=== PATIENT | female | born 1985 | race Caucasian/White ===

== ENCOUNTER 2018-01-30 23:24 | Emergency (ER) | payer OTHER ==
[~2018-01-30] VITALS: Ht 149.9 cm; Wt 72.6 kg
[2018-01-30 23:36] VITALS: BP 118/87
[2018-01-31] MEDS ORDERED: BACITRACIN OINT 500 UNITS/GM PKT TP ONE
[2018-01-31] MEDS ORDERED: NEOMYCIN/POLYMYXIN/BACITRACIN 0.9 GM/1 PKT TP ONE (00:11)
[2018-01-31 00:28] VITALS: BP 116/85
== END 2018-01-31 00:29 | disposition home or self-care (01) ==
LOC: MED 23:24
DX: S80.811A Abrasion, right lower leg, initial encounter (principal); W45.8XXA Other foreign body or object entering through skin, initial encounter; Y93.89 Activity, other specified; Y92.89 Other specified places as the place of occurrence of the external cause; Y99.8 Other external cause status
CPT/HCPCS: 90471; 90715; 99283

== ENCOUNTER 2018-07-08 18:17 | Emergency (ER) | payer OTHER ==
[~2018-07-08] VITALS: Ht 149.9 cm; Wt 108.9 kg
[2018-07-08 18:35] VITALS: BP 138/98
--- NOTE | 2018-07-08 18:46 | NUR ---
PT AMBULATED TO CHAIR E
--- NOTE | 2018-07-08 19:03 | NUR ---
PATIENT AMBULATED TO BED 9
--- NOTE | 2018-07-08 19:15 | NUR ---
report recv'd from Lisa BECK
--- NOTE | 2018-07-08 19:18 | NUR ---
edmd at bedside performing MSE
--- NOTE | 2018-07-08 19:21 | NUR ---
REPORT RECV'D FROM OBI[facility]
--- NOTE | 2018-07-08 19:21 | NUR ---
Sameer morton in [facility] - 07/08/18 at 1921 by REI BRANDEN REYES FROM [facility]
--- NOTE | 2018-07-08 19:30 | NUR ---
xray at bedside
[2018-07-08 19:37] LABS: BASOPHILS # (AUTO) 0.1 K/uL (0.00-0.22); BASOPHILS % (AUTO) 0.8 % (0.0-2.0); EOSINOPHILS # (AUTO) 0.1 K/uL (0-0.4); EOSINOPHILS % (AUTO) 0.6 % (0.0-4.0); HEMATOCRIT 41.8 % (36-48); HEMOGLOBIN 13.7 g/dL (12.0-16.0); LYMPHOCYTES # (AUTO) 2.2 K/uL (2.5-16.5); LYMPHOCYTES % (AUTO) 22.2 % (20.5-51.1); MEAN CORPUSCULAR HEMOGLOBIN 26 pg (27-31); MEAN CORPUSCULAR HGB CONC 33 g/dL (33-37); MONOCYTES # (AUTO) 0.5 K/uL (0.8-1.0); MONOCYTES % (AUTO) 5.4 % (1.7-9.3); PLATELET COUNT (AUTO) 356 K/uL (140-450); RED BLOOD CELL COUNT(AUTO) 5.29 MIL/uL (4.20-5.40); RED CELL DISTRIBUTION WIDTH 15.4 % (11.6-13.7); WHITE BLOOD COUNT (AUTO) 9.8 K/uL (4.8-10.8)
--- NOTE | 2018-07-08 19:41 | NUR ---
PT C/O 6/10 CONTINUOUS CHEST PRESSURE X 2 HRS WHEN SHE WAS STANDING IN HER ATTIC, RADIATING TO THE BACK, DENIES NVD, SOB AT THIS TIME. - DIAPHORESIS. ADMITS TO TAKING PREDNISONE, AMOXICILLIN AND SINGULAIR X 4 DAYS FOR SINUS INFECTION. SKIN IS INTACT, PINK/WARM/DRY; AAOX4, PERRL, LUNGS CLEAR BL, BREATHING UNLABORED;admits to nonproductinve cough, HR EVEN AND REGULAR, BL PERIPHERAL PULSES PRESENT; placed on cardiorespiratory monitor, NSR, HOB ELEVATED; BEDRAILS UP X1.
[2018-07-08 19:58] LABS: ANION GAP 13.8 (8-16); CREATININE 0.9 mg/dL (0.6-1.3); POTASSIUM 3.8 mmol/L (3.5-5.1)
[2018-07-08 20:04] LABS: ALBUMIN 3.3 g/dL (3.4-5.0); TOTAL BILIRUBIN 0.2 mg/dL (0.0-1.0)
[2018-07-08 20:12] LABS: CREATINE KINASE MB 0.4 ng/mL (0-3.6)
[2018-07-08 20:26] VITALS: BP 135/95
--- NOTE | 2018-07-08 20:26 | NUR ---
Patient discharged with v/s stable. Written and verbal after care instructions given and explained. Patient alert, oriented and verbalized understanding of instructions. Ambulatory with steady gait. All questions addressed prior to discharge. ID band removed. Patient advised to follow up with PMD. Rx of albuterol and sudafed given. Patient educated on indication of medication including possible reaction and side effects. Opportunity to ask questions provided and answered.
== END 2018-07-08 20:26 | disposition home or self-care (01) ==
LOC: MED 18:17
DX: J20.9 Acute bronchitis, unspecified (principal)
CPT/HCPCS: 36415; 71045; 80053; 82550; 82553; 83690; 84484; 85025; 85379; 93005; 99284; Q0092

== ENCOUNTER 2019-02-07 22:08 | Emergency (ER) | payer OTHER ==
[~2019-02-07] VITALS: Ht 149.9 cm; Wt 113.0 kg
[2019-02-07 22:15] VITALS: BP 130/90
--- NOTE | 2019-02-07 22:15 | NUR ---
TO BED # 12 AMBULATORY
--- NOTE | 2019-02-07 22:34 | NUR ---
33 YO F BIB SELF AND BOYFRIEND PRESENTS TO ED C/O TROUBLE FOCUSING, HEAD FOGGINESS X 4 DAYS. PT STATES "I FEEL LIKE I'M JUST OUT OF IT". NO ACUTE CONFUSION AT THIS TIME. PT ASLO REPORTS EYE TWITCHING, MILD NAUSEA OFF AND ON. DENIES PAIN/DISCOMFORT. -- PT AWAKE, A/O X 4. CALM, COOPERATIVE. BEHAVIOR AGE APPROPRIATE. ANSWERS QUESTIONS IN CLEAR, FULL SENTENCES. -- SKIN PINK, WARM, DRY. BREATHING EVEN, UNLABORED PMH-- DENIES RX-- DENIES
--- NOTE | 2019-02-07 23:08 | NUR ---
DR. ROLDAN EVALUATING AT BEDSIDE.
--- NOTE | 2019-02-07 23:15 | NUR ---
EMT PERFORMING EKG AT BEDSIDE.
[2019-02-07 23:32] LABS: BASOPHILS % (AUTO) 0.5 % (0.0-2.0); EOSINOPHILS # (AUTO) 0.3 K/uL (0-0.4); EOSINOPHILS % (AUTO) 3.8 % (0.0-4.0); HEMATOCRIT 45.1 % (36-48); LYMPHOCYTES # (AUTO) 2.6 K/uL (2.5-16.5); LYMPHOCYTES % (AUTO) 32.2 % (20.5-51.1); MEAN CORPUSCULAR HEMOGLOBIN 28 pg (27-31); MEAN CORPUSCULAR HGB CONC 33 g/dL (33-37); MEAN CORPUSCULAR VOLUME 83.2 fL (80-94); MONOCYTES # (AUTO) 0.5 K/uL (0.8-1.0); MONOCYTES % (AUTO) 5.7 % (1.7-9.3); NEUTROPHILS # (AUTO) 4.7 K/uL (1.8-7.7); NEUTROPHILS % (AUTO) 57.8 % (42.2-75.2); PLATELET COUNT (AUTO) 397 K/uL (140-450); RED BLOOD CELL COUNT(AUTO) 5.42 MIL/uL (4.20-5.40); RED CELL DISTRIBUTION WIDTH 14.2 % (11.6-13.7); WHITE BLOOD COUNT (AUTO) 8.2 K/uL (4.8-10.8)
[2019-02-07 23:47] LABS: BARBITURATE, URINE NEG. ng/ml (NEG <=200); BENZODIAZEPINE, URINE NEG. ng/mL (NEG <=200); CANNABINOID, URINE NEG. ng/mL (NEG <=50); COCAINE, URINE NEG. ng/mL (NEG <=300); OPIATE, URINE NEG. ng/mL (NEG <=2000); PHENCYCLIDINE SCREEN,URINE NEG. ng/mL (NEG <=25)
[2019-02-07 23:51] LABS: ANION GAP 13.7 (8-16); CARBON DIOXIDE 26.2 mmol/L (21-32); CREATININE 0.9 mg/dL (0.6-1.3); POTASSIUM 3.9 mmol/L (3.5-5.1); TOTAL BILIRUBIN 0.4 mg/dL (0.0-1.0)
[2019-02-07 23:57] LABS: CREATINE KINASE MB 0.5 ng/mL (0-3.6)
[2019-02-08 00:46] VITALS: BP 128/86
--- NOTE | 2019-02-08 00:46 | NUR ---
DISCHARGE PAPERS GIVEN TO PT. PT STATES NO DIZZINESS. VSS. INSTRUCTED TO F/U WITH PCP AND WHEN TO RETURN TO ER. PT VERBALLIZED UNDERSTANDING OF DC INSTRUCTIONS. ALL QEUSTIONS ANSWERED.
== END 2019-02-08 00:46 | disposition home or self-care (01) ==
LOC: MED 22:08
DX: Z00.00 Encounter for general adult medical examination without abnormal findings (principal); F12.10 Cannabis abuse, uncomplicated
CPT/HCPCS: 36415; 80053; 80305; 81025; 82550; 82553; 84484; 85025; 93005; 99284

== ENCOUNTER 2020-12-19 11:27 | Emergency (ER) | payer OTHER ==
[~2020-12-19] VITALS: Ht 149.9 cm; Wt 98.9 kg
[2020-12-19 11:39] VITALS: BP 135/87
--- NOTE | 2020-12-19 11:42 | NUR ---
PT TO AWAIT IN LOBBY
[2020-12-19 12:48] LABS: BASOPHILS % (AUTO) 0.8 % (0.0-2.0); EOSINOPHILS # (AUTO) 0.2 K/uL (0-0.4); EOSINOPHILS % (AUTO) 3.8 % (0.0-4.0); HEMATOCRIT 44.4 % (36-48); HEMOGLOBIN 14.5 g/dL (12.0-16.0); LYMPHOCYTES # (AUTO) 1.8 K/uL (2.5-16.5); MEAN CORPUSCULAR HEMOGLOBIN 28 pg (27-31); MEAN CORPUSCULAR HGB CONC 33 g/dL (33-37); MEAN CORPUSCULAR VOLUME 84.3 fL (80-94); MONOCYTES # (AUTO) 0.4 K/uL (0.8-1.0); MONOCYTES % (AUTO) 6.5 % (1.7-9.3); NEUTROPHILS # (AUTO) 3.2 K/uL (1.8-7.7); NEUTROPHILS % (AUTO) 56.9 % (42.2-75.2); PLATELET COUNT (AUTO) 348 K/uL (140-450); RED BLOOD CELL COUNT(AUTO) 5.26 MIL/uL (4.20-5.40); RED CELL DISTRIBUTION WIDTH 14.5 % (11.6-13.7); WHITE BLOOD COUNT (AUTO) 5.6 K/uL (4.8-10.8)
--- NOTE | 2020-12-19 13:14 | NUR ---
AMBULATED TO BED 7
[2020-12-19 13:22] LABS: CARBON DIOXIDE 24.9 mmol/L (21-32); CREATININE 0.9 mg/dL (0.6-1.3); POTASSIUM 3.9 mmol/L (3.5-5.1)
--- NOTE | 2020-12-19 13:24 | NUR ---
35/F presents to ED with c/o mid abdominal pain radiating to bilateral sides and lower back x3 days. Patient states pain has been worsening and she has found no relief, reports taking Monroe, muscle relaxer and Ibuprofen with mild relief. Reports 8/10 constant burning/cramping pain, denies urinary symptoms, states intermittent episodes of nauses, denies vomiting or diarrhea. Denies fever, chills, cp or sob.
[2020-12-19 13:37] LABS: ALBUMIN 3.6 g/dL (3.4-5.0); TOTAL BILIRUBIN 0.4 mg/dL (0.0-1.0)
[2020-12-19] MEDS ORDERED: DICYCLOMINE 10 MG CAP PO ONE (14:25)
--- NOTE | 2020-12-19 14:35 | NUR ---
Ultrasound at bedside.
--- NOTE | 2020-12-19 15:20 | NUR ---
PT. TAKEN TO CT VIA W/C
--- NOTE | 2020-12-19 15:29 | NUR ---
PT. RETURNED FROM CT.
[2020-12-19] MEDS ORDERED: ONDA-24 SL (15:51)
[2020-12-19] MEDS ORDERED: IBUP-2213 PO (15:51)
[2020-12-19] MEDS ORDERED: BEN10 PO (15:51)
[2020-12-19 16:17] VITALS: BP 116/78
--- NOTE | 2020-12-19 16:18 | NUR ---
Patient discharged with v/s stable. Written and verbal after care instructions given and explained. Patient alert, oriented and verbalized understanding of instructions. Ambulatory with steady gait. All questions addressed prior to discharge. ID band removed. Patient advised to follow up with PMD. Rx of Bentyl, Zofran, Ibuprofen 600mg given. Patient educated on indication of medication including possible reaction and side effects. Opportunity to ask questions provided and answered.
== END 2020-12-19 15:57 | disposition home or self-care (01) ==
LOC: MED 11:27
DX: K76.0 Fatty (change of) liver, not elsewhere classified (principal)
CPT/HCPCS: 36415; 74177; 76705; 80053; 81002; 81025; 83690; 85025; 99285; Q9967; Q0092

== ENCOUNTER 2021-03-24 16:48 | Emergency (ER) | payer OTHER ==
[~2021-03-24] VITALS: Ht 149.9 cm; Wt 97.5 kg
[~2021-03-24 16:48] MED LIST: BEN10 PO; IBUP-2213 PO; ONDA-188 SL
[2021-03-24 16:52] VITALS: BP 127/60
[2021-03-24] MEDS ORDERED: PROM118S5 PO (18:14)
--- NOTE | 2021-03-24 18:28 | NUR ---
Patient discharged with v/s stable. Written and verbal after care instructions given and explained. Patient alert, oriented and verbalized understanding of instructions. Ambulatory with steady gait. All questions addressed prior to discharge. ID band removed. Patient advised to follow up with PMD. Rx PROMETHAZINE/DEXTROMETHORPHAN given. Opportunity to ask questions provided and answered.
== END 2021-03-24 18:25 | disposition home or self-care (01) ==
LOC: MED 16:48
DX: J40 Bronchitis, not specified as acute or chronic (principal); I10 Essential (primary) hypertension; Z79.899 Other long term (current) drug therapy; Z79.1 Long term (current) use of non-steroidal anti-inflammatories (NSAID)
CPT/HCPCS: 71045; 99283

== ENCOUNTER 2022-04-10 11:58 | Emergency (ER) | payer OTHER ==
[~2022-04-10] VITALS: Ht 149.9 cm; Wt 110.4 kg
[~2022-04-10 11:58] MED LIST changes: +PROM118S5 PO
[2022-04-10 12:16] VITALS: BP 120/69
--- NOTE | 2022-04-10 12:34 | NUR ---
COVID, FLU SWABS DONE.
--- NOTE | 2022-04-10 12:35 | NUR ---
Patient being evaluated by GAB CORONADO at [facility].
[2022-04-10] MEDS ORDERED: ALBU0.0912 IH (12:53)
[2022-04-10] MEDS ORDERED: ACET-2214 PO (12:53)
[2022-04-10] MEDS ORDERED: DIPH-670 PO (12:53)
[2022-04-10 13:15] VITALS: BP 120/69
--- NOTE | 2022-04-10 13:15 | NUR ---
Patient discharged with v/s stable. Written and verbal after care instructions given and explained. Patient alert, oriented and verbalized understanding of instructions. Ambulatory with steady gait. All questions addressed prior to discharge. ID band removed. Patient advised to follow up with PMD. Rx of ACETAMINOPHEN, PROVENTIL, BENADRYL given. Patient educated on indication of medication including possible reaction and side effects. Opportunity to ask questions provided and answered.
== END 2022-04-10 13:15 | disposition home or self-care (01) ==
LOC: MED 11:58
DX: R05.1 Acute cough (principal); Z20.822 Contact with and (suspected) exposure to COVID-19
CPT/HCPCS: 99283

== ENCOUNTER 2022-07-12 23:24 | Observation (INO) | payer OTHER ==
[~2022-07-12] VITALS: Ht 149.9 cm; Wt 111.1 kg
[~2022-07-12 23:24] MED LIST changes: +ACET-2214 PO; +ALBU0.0912 IH; +DIPH-670 PO
[2022-07-13 00:23] VITALS: BP 121/63
== END 2022-07-13 02:05 | disposition home or self-care (01) ==
LOC: MLD 23:24
PROVIDERS: ADMIT Obstetrics & Gynecology; ATTEND Obstetrics & Gynecology
DX: O26.893 Other specified pregnancy related conditions, third trimester (principal); R10.9 Unspecified abdominal pain; Z3A.38 38 weeks gestation of pregnancy
CPT/HCPCS: 76819; G0378; Q0092

== ENCOUNTER 2022-07-17 00:10 | Inpatient (IN) | payer OTHER ==
[~2022-07-17] VITALS: Ht 149.9 cm; Wt 112.9 kg
[~2022-07-17 00:10] MED LIST changes: -DIPH-670 PO
[2022-07-17] MEDS ORDERED: MORPHINE SULFATE 5 MG/ML VIAL IVP PRN (01:15)
[2022-07-17] MEDS ORDERED: ONDANSETRON 4 MG/2 ML VIAL IVP PRN ×2 (01:15→18:40)
[2022-07-17] MEDS: LACTATED RINGERS 1,000 ML IV SCH ×5 (02:03→15:50)
[2022-07-17 02:10] LABS: BASOPHILS % (AUTO) 0.4 % (0.0-2.0); EOSINOPHILS # (AUTO) 0.1 K/uL (0-0.4); HEMATOCRIT 36.3 % (36-48); HEMOGLOBIN 12.1 g/dL (12.0-16.0); LYMPHOCYTES # (AUTO) 1.8 K/uL (2.5-16.5); LYMPHOCYTES % (AUTO) 19.7 % (20.5-51.1); MEAN CORPUSCULAR HEMOGLOBIN 28 pg (27-31); MEAN CORPUSCULAR HGB CONC 33 g/dL (33-37); MEAN CORPUSCULAR VOLUME 82.7 fL (80-94); MONOCYTES # (AUTO) 0.8 K/uL (0.8-1.0); MONOCYTES % (AUTO) 8.2 % (1.7-9.3); NEUTROPHILS # (AUTO) 6.5 K/uL (1.8-7.7); NEUTROPHILS % (AUTO) 70.7 % (42.2-75.2); PLATELET COUNT (AUTO) 245 K/uL (140-450); RED BLOOD CELL COUNT(AUTO) 4.38 MIL/uL (4.20-5.40); RED CELL DISTRIBUTION WIDTH 14.7 % (11.6-13.7); WHITE BLOOD COUNT (AUTO) 9.2 K/uL (4.8-10.8)
[2022-07-17 02:19] LABS: APPEARANCE,URINE CLEAR (CLEAR); BILIRUBIN,URINE NEGATIVE (NEGATIVE); BLOOD, URINE NEGATIVE (NEGATIVE); COLOR,URINE YELLOW (YELLOW); LEUKOCYTE ESTERASE ,URINE NEGATIVE (NEGATIVE); NITRITE, URINE NEGATIVE (NEGATIVE); UGLUCOSE NEGATIVE (NEGATIVE)
[2022-07-17] MEDS ORDERED: PNV91TAB8 PO (02:24)
[2022-07-17] MEDS ORDERED: CEPH-588 PO (02:24)
[2022-07-17 02:26] LABS: PROTHROMBIN TIME 9.6 secs (10.8-13.4)
[2022-07-17 02:31] LABS: ALBUMIN 2.5 g/dL (3.4-5.0); ANION GAP 11.8 (8-16); CARBON DIOXIDE 23.9 mmol/L (21-32); CREATININE 0.8 mg/dL (0.6-1.3); POTASSIUM 3.7 mmol/L (3.5-5.1); TOTAL BILIRUBIN 0.2 mg/dL (0.0-1.0)
[2022-07-17 02:37] LABS: CALCIUM OXALATE CRYSTALS,UR 0-2 /HPF (None Seen); RBC,URINE 0-5 /HPF (0-5)
[2022-07-17 03:24] VITALS: BP 116/73
[2022-07-17] MEDS ORDERED: MORPHINE SULFATE 10 MG/ML VIAL ONE (06:08)
[2022-07-17] MEDS ORDERED: ROPIVACAINE 0.2%/NS PREMIX 200 ML EPI SCH (06:35)
[2022-07-17] MEDS ORDERED: OXYTOCIN 20 UNITS in LACTATED RINGERS 1,000 ML IV SCH (08:35)
[2022-07-17] MEDS ORDERED: METHYLERGONOVINE 0.2 MG/ML AMP IM PRN ×2 (08:40→20:55)
[2022-07-17] MEDS ORDERED: OXYTOCIN 20 UNITS/LR PREMIX 1,000 ML IV ONE ×2 (08:45→22:11)
[2022-07-17] MEDS ORDERED: ceFAZolin 2,000 MG VIAL ONE ×2 (16:35→17:00)
[2022-07-17] MEDS ORDERED: fentaNYL citrate 0.05 MG/ML - 50mL vial IV ONE (17:00)
[2022-07-17] MEDS ORDERED: ePHEDrine 50 MG/ML VIAL ONE (17:00)
[2022-07-17] MEDS ORDERED: OXYTOCIN 10 UNITS/ML VIAL ONE (17:00)
[2022-07-17] MEDS ORDERED: METOCLOPRAMIDE 10 MG/2 ML INJ VIAL ONE (17:00)
[2022-07-17] MEDS ORDERED: ONDANSETRON 4 MG/2 ML VIAL ONE (17:00)
[2022-07-17] MEDS ORDERED: MORPHINE SULFATE 2 MG/ML SYR ONE (17:00)
[2022-07-17] MEDS ORDERED: LIDOCAINE/EPI MPF 2%1:200000 10 ML VIAL INJ ONE (17:17)
[2022-07-17] MEDS ORDERED: fentaNYL citrate 0.05 MG/ML VIAL ONE (17:17)
[2022-07-17] MEDS ORDERED: MORPHINE PRES FREE 5 MG/10 ML AMP IV ONE (17:18)
[2022-07-17] MEDS ORDERED: KETOROLAC 60 MG/2 ML VIAL IM PRN (18:40)
[2022-07-17] MEDS ORDERED: diphenhydrAMINE 50 MG/ML VIAL IVP PRN (18:40)
[2022-07-17] MEDS ORDERED: bisacodyL 5 MG TABEC PO PRN (20:55)
[2022-07-17] MEDS ORDERED: MEASLES, MUMPS, AND RUBELLA 1 VIAL SQVAC ONE (20:55)
[2022-07-17] MEDS: OXYTOCIN 20 UNITS in LACTATED RINGERS 1,000 ML IV SCH (22:19)
[2022-07-18] MEDS ORDERED: OXYTOCIN 20 UNITS/LR PREMIX 1,000 ML IV ONE ×2 (05:21→14:54)
[2022-07-18] MEDS: OXYTOCIN 20 UNITS in LACTATED RINGERS 1,000 ML IV SCH (06:23)
[2022-07-18 07:35] LABS: BASOPHILS # (AUTO) 0.1 K/uL (0.00-0.22); BASOPHILS % (AUTO) 0.4 % (0.0-2.0); EOSINOPHILS % (AUTO) 0.1 % (0.0-4.0); HEMOGLOBIN 9.8 g/dL (12.0-16.0); LYMPHOCYTES # (AUTO) 0.9 K/uL (2.5-16.5); LYMPHOCYTES % (AUTO) 7.3 % (20.5-51.1); MEAN CORPUSCULAR HEMOGLOBIN 27 pg (27-31); MEAN CORPUSCULAR HGB CONC 33 g/dL (33-37); MEAN CORPUSCULAR VOLUME 83.7 fL (80-94); MONOCYTES # (AUTO) 0.8 K/uL (0.8-1.0); MONOCYTES % (AUTO) 6.2 % (1.7-9.3); PLATELET COUNT (AUTO) 187 K/uL (140-450); RED BLOOD CELL COUNT(AUTO) 3.59 MIL/uL (4.20-5.40); RED CELL DISTRIBUTION WIDTH 14.9 % (11.6-13.7); WHITE BLOOD COUNT (AUTO) 12.8 K/uL (4.8-10.8)
[2022-07-18] MEDS: SIMETHICONE 80 MG TAB.CHEW PO PRN ×3 (08:38→21:29)
--- NOTE | 2022-07-18 09:06 | NUR ---
PATIENT HAS BEEN SCREENED AND CATEGORIZED LOW NUTRITION RISK. PATIENT WILL BE SEEN WITHIN 7 DAYS OF ADMISSION. 07/17/22-07/24/[address]
[2022-07-18] MEDS ORDERED: MEASLES, MUMPS, AND RUBELLA 1 VIAL SQVAC SCH (09:55)
[2022-07-18] MEDS: oxyCODONE/APAP 5/325 MG 1 TAB TAB PO PRN ×2 (15:52→23:27)
[2022-07-19] MEDS: IBUPROFEN 800 MG TAB PO PRN ×2 (03:12→22:11)
[2022-07-19] MEDS: oxyCODONE/APAP 5/325 MG 1 TAB TAB PO PRN ×3 (05:37→16:51)
[2022-07-19] MEDS: SIMETHICONE 80 MG TAB.CHEW PO PRN ×2 (10:23→17:33)
[2022-07-19] MEDS ORDERED: bisacodyL 10 MG SUPP RC SCH (20:00)
[2022-07-19] MEDS ORDERED: bisacodyL 10 MG SUPP RC ONE (20:02)
[2022-07-20] MEDS: SIMETHICONE 80 MG TAB.CHEW PO PRN ×2 (01:31→07:48)
[2022-07-20] MEDS ORDERED: CAMERA MC ONE (04:18)
[2022-07-20] MEDS: IBUPROFEN 800 MG TAB PO PRN (07:48)
== END 2022-07-20 15:50 | disposition home or self-care (01) | DRG 540 ==
LOC: MLD 00:10 → OBSVTOIN 00:20 → MFCC 20:15
PROVIDERS: ADMIT Obstetrics & Gynecology; ATTEND Obstetrics & Gynecology
PROC: 10D00Z1 Extraction of Products of Conception, Low, Open Approach (ICD-10-PCS; principal; 2022-07-17 17:00)
DX: O62.1 Secondary uterine inertia (principal); O99.214 Obesity complicating childbirth; O66.2 Obstructed labor due to unusually large fetus; O76 Abnormality in fetal heart rate and rhythm complicating labor and delivery; Z20.822 Contact with and (suspected) exposure to COVID-19; Z3A.38 38 weeks gestation of pregnancy; Z37.0 Single live birth
CPT/HCPCS: 36415; 51702; 80053; 81001; 85025; 85610; 85730; 86592; 86886; 86900; 86901; 87086; J0690; J1885; J2001; J2270; J2405; J2590; J2765; J2795; J3010; J7060; J7120